=== PATIENT | female | born 1935 | race Caucasian/White ===

== ENCOUNTER 2019-01-01 17:43 | Emergency (ER) | payer MEDICARE, OTHER ==
[~2019-01-01] VITALS: Ht 167.6 cm; Wt 63.5 kg
[2019-01-01 17:49] VITALS: Ht 167.6 cm; Wt 63.5 kg
[2019-01-02 04:09] VITALS: BP 121/69
== END 2019-01-02 04:09 | disposition home or self-care (01) ==
LOC: ED 17:43
DX: S02.2XXA Fracture of nasal bones, initial encounter for closed fracture (principal); S01.111A Laceration without foreign body of right eyelid and periocular area, initial encounter; S09.8XXA Other specified injuries of head, initial encounter; I10 Essential (primary) hypertension; E03.9 Hypothyroidism, unspecified; F03.90 Unspecified dementia, unspecified severity, without behavioral disturbance, psychotic disturbance, mood disturbance, and anxiety; W18.39XA Other fall on same level, initial encounter; Y93.89 Activity, other specified; Y92.89 Other specified places as the place of occurrence of the external cause; Y99.8 Other external cause status
CPT/HCPCS: J1630; J2060

== ENCOUNTER 2019-05-18 15:53 | Inpatient (IN) | payer MEDICARE, OTHER ==
[~2019-05-18] VITALS: Ht 157.5 cm; Wt 51.7 kg
[~2019-05-18 15:53] MED LIST: ARICEPT10 MG PO; BACTRIM DS1 TAB PO; BENAZEPRIL HYDR40 M1 PO; CALCIUM + D SO1 EACH PO; COLACE100 MG PO; FERROUS SULFAT325 M2 PO; GABAPENTIN100 M2 PO; SYNTHROID0.15 MG PO
[2019-05-18 17:01] LABS: PLATELET COUNT 435 x10^3mcL (130-400); RED CELL DISTRIBUTION WIDTH 16.2 % (11.5-14.5)
[2019-05-18 17:22] LABS: CALCIUM 9.8 mg/dL (8.5-10.1); CARBON DIOXIDE 27.4 mmol/L (21-32); CHLORIDE SERUM 110 mmol/L (98-107); CREATININE SERUM 1.4 mg/dL (0.6-1.0); GLUCOSE SERUM 83 mg/dL (74-106); POTASSIUM SERUM 4.9 mmol/L (3.5-5.1); SODIUM SERUM 146 mmol/L (136-145)
[2019-05-18 17:39] LABS: ALKALINE PHOSPHATASE 156 U/L (46-116); ALT/SGPT 25 U/L (14-59); AST/SGOT 19 U/L (15-37); BILIRUBIN TOTAL 0.21 mg/dL (0.20-1.00); FREE T4 1.71 ng/dL (0.76-1.46); MAGNESIUM 2.2 mg/dL (1.8-2.4); TOTAL PROTEIN, SERUM 7.4 g/dL (6.4-8.2)
[2019-05-18 17:43] LABS: BAND NEUTROPHIL 0 % (0-10); BASOPHIL 0 % (0-2); MONOCYTE 3 % (0-7); PLATELET MORPHOLOGY PLATELETS NORMAL; SEGMENTED NEUTROPHILS 88 % (37-75); rbc morphology (normal/abnorm) NORMAL (NORMAL)
[2019-05-18 17:47] LABS: ALBUMIN 2.7 g/dL (3.4-5.0)
[2019-05-18 17:49] LABS: UA SPECIFIC GRAVITY >=1.030 (1.005-1.035); microscopic required? YES; urine erythrocyte TRACE (NEGATIVE)
[2019-05-18 20:32] LABS: CHOLESTEROL/HDL RATIO 2.6
[2019-05-18 21:13] LABS: AMPHETAMINE QUAL UR NONE DETECTED (See below)
[2019-05-18 22:07] VITALS: BP 85/56
[2019-05-19 06:36] VITALS: BP 114/57
[2019-05-19 06:43] LABS: CALCIUM 8.9 mg/dL (8.5-10.1); CARBON DIOXIDE 26.5 mmol/L (21-32); CHLORIDE SERUM 116 mmol/L (98-107); CREATININE SERUM 1.2 mg/dL (0.6-1.0); GLUCOSE SERUM 66 mg/dL (74-106); LIPASE 734 IU/L (73-393); MAGNESIUM 1.9 mg/dL (1.8-2.4); PHOSPHOROUS 3.2 mg/dL (2.5-4.9); POTASSIUM SERUM 5.1 mmol/L (3.5-5.1); SODIUM SERUM 151 mmol/L (136-145)
[2019-05-19 06:54] LABS: BASOPHIL % 0.3 % (0-2); PLATELET COUNT 340 x10^3mcL (130-400)
[2019-05-19 07:01] LABS: RED CELL DISTRIBUTION WIDTH 15.9 % (11.5-14.5)
[2019-05-19 08:34] VITALS: BP 119/95
[2019-05-19 12:49] VITALS: BP 91/51
[2019-05-19 16:11] LABS: CALCIUM 8.8 mg/dL (8.5-10.1); CARBON DIOXIDE 26.5 mmol/L (21-32); CHLORIDE SERUM 112 mmol/L (98-107); CREATININE SERUM 1.2 mg/dL (0.6-1.0); GLUCOSE SERUM 99 mg/dL (74-106); POTASSIUM SERUM 4.6 mmol/L (3.5-5.1); SODIUM SERUM 147 mmol/L (136-145)
[2019-05-19 17:59] VITALS: BP 111/53
[2019-05-19 21:21] VITALS: BP 98/43
[2019-05-20 05:59] VITALS: BP 106/61
[2019-05-20 07:04] LABS: BASOPHIL % 0.2 % (0-2); PLATELET COUNT 310 x10^3mcL (130-400)
[2019-05-20 07:07] LABS: RED CELL DISTRIBUTION WIDTH 16.1 % (11.5-14.5)
[2019-05-20 07:10] LABS: CALCIUM 8.7 mg/dL (8.5-10.1); CARBON DIOXIDE 26.2 mmol/L (21-32); CHLORIDE SERUM 111 mmol/L (98-107); GLUCOSE SERUM 91 mg/dL (74-106); POTASSIUM SERUM 3.9 mmol/L (3.5-5.1); SODIUM SERUM 144 mmol/L (136-145)
[2019-05-20 08:39] VITALS: BP 110/50
[2019-05-20 12:49] VITALS: BP 109/51
[2019-05-20 16:00] VITALS: BP 139/70
[2019-05-20 20:15] VITALS: BP 149/79
[2019-05-21 05:48] VITALS: BP 110/50
[2019-05-21 06:06] LABS: BASOPHIL % 0.2 % (0-2); PLATELET COUNT 293 x10^3mcL (130-400)
[2019-05-21 06:16] LABS: RED CELL DISTRIBUTION WIDTH 15.5 % (11.5-14.5)
[2019-05-21 06:58] LABS: CALCIUM 8.8 mg/dL (8.5-10.1); CARBON DIOXIDE 26.7 mmol/L (21-32); CHLORIDE SERUM 108 mmol/L (98-107); GLUCOSE SERUM 96 mg/dL (74-106); POTASSIUM SERUM 4.2 mmol/L (3.5-5.1); SODIUM SERUM 143 mmol/L (136-145)
[2019-05-21 08:18] VITALS: BP 88/59
[2019-05-21 12:42] VITALS: BP 130/83
[2019-05-21 17:09] VITALS: BP 124/80
[2019-05-21 20:16] VITALS: BP 120/74
[2019-05-22 05:35] VITALS: BP 119/67
[2019-05-22 06:41] LABS: CALCIUM 8.7 mg/dL (8.5-10.1); CARBON DIOXIDE 26.5 mmol/L (21-32); CHLORIDE SERUM 108 mmol/L (98-107); CREATININE SERUM 0.7 mg/dL (0.6-1.0); GLUCOSE SERUM 85 mg/dL (74-106); POTASSIUM SERUM 3.5 mmol/L (3.5-5.1); SODIUM SERUM 143 mmol/L (136-145)
[2019-05-22 07:06] LABS: BASOPHIL % 0.2 % (0-2); PLATELET COUNT 299 x10^3mcL (130-400)
[2019-05-22 07:28] LABS: RED CELL DISTRIBUTION WIDTH 15.7 % (11.5-14.5)
[2019-05-22 09:25] VITALS: BP 113/55
[2019-05-22 13:33] VITALS: BP 110/59
[2019-05-22 17:31] VITALS: BP 127/73
[2019-05-22 20:22] VITALS: BP 129/75
[2019-05-23 06:19] VITALS: BP 104/47
[2019-05-23 06:19] LABS: BASOPHIL % 0.2 % (0-2); PLATELET COUNT 315 x10^3mcL (130-400)
[2019-05-23 06:38] LABS: RED CELL DISTRIBUTION WIDTH 15.5 % (11.5-14.5)
[2019-05-23 06:50] LABS: CALCIUM 8.7 mg/dL (8.5-10.1); CARBON DIOXIDE 28.1 mmol/L (21-32); CHLORIDE SERUM 111 mmol/L (98-107); CREATININE SERUM 0.9 mg/dL (0.6-1.0); GLUCOSE SERUM 78 mg/dL (74-106); SODIUM SERUM 146 mmol/L (136-145)
[2019-05-23 09:04] VITALS: BP 92/55
[2019-05-23 11:22] VITALS: Ht 157.5 cm; Wt 51.7 kg
[2019-05-23 13:40] VITALS: BP 119/64
[2019-05-23 16:56] VITALS: BP 126/72
[2019-05-23 20:45] VITALS: BP 104/85
[2019-05-24 04:50] VITALS: BP 121/71
[2019-05-24 06:36] LABS: BASOPHIL % 0.4 % (0-2); PLATELET COUNT 307 x10^3mcL (130-400)
[2019-05-24 07:02] LABS: CALCIUM 8.4 mg/dL (8.5-10.1); CARBON DIOXIDE 27.2 mmol/L (21-32); CHLORIDE SERUM 112 mmol/L (98-107); GLUCOSE SERUM 92 mg/dL (74-106); POTASSIUM SERUM 3.3 mmol/L (3.5-5.1); SODIUM SERUM 148 mmol/L (136-145)
[2019-05-24 07:06] LABS: RED CELL DISTRIBUTION WIDTH 15.4 % (11.5-14.5)
[2019-05-24 08:19] VITALS: BP 113/44
[2019-05-24 16:14] VITALS: BP 122/60
[2019-05-24 16:36] VITALS: BP 122/60
[2019-05-24 17:44] VITALS: BP 130/74
[2019-05-24 20:07] VITALS: BP 110/76
[2019-05-25 05:31] VITALS: BP 126/99
[2019-05-25 06:51] LABS: PLATELET COUNT 323 x10^3mcL (130-400)
[2019-05-25 07:15] LABS: CALCIUM 8.6 mg/dL (8.5-10.1); CHLORIDE SERUM 112 mmol/L (98-107); CREATININE SERUM 0.8 mg/dL (0.6-1.0); GLUCOSE SERUM 160 mg/dL (74-106); POTASSIUM SERUM 3.3 mmol/L (3.5-5.1); SODIUM SERUM 148 mmol/L (136-145)
[2019-05-25 07:28] LABS: BASOPHIL % 0 % (0-2)
[2019-05-25 08:25] VITALS: BP 119/72
[2019-05-25 09:45] LABS: BASOPHIL % 0.5 % (0-2); PLATELET COUNT 333 x10^3mcL (130-400)
[2019-05-25 09:47] LABS: RED CELL DISTRIBUTION WIDTH 15.4 % (11.5-14.5)
[2019-05-25 12:02] VITALS: BP 107/51
[2019-05-25 16:53] VITALS: BP 127/40
[2019-05-25 20:37] VITALS: BP 160/52
[2019-05-26 05:22] VITALS: BP 118/53
[2019-05-26 06:49] LABS: BASOPHIL % 0.6 % (0-2); PLATELET COUNT 312 x10^3mcL (130-400)
[2019-05-26 07:41] LABS: RED CELL DISTRIBUTION WIDTH 15.5 % (11.5-14.5)
[2019-05-26 07:47] LABS: CALCIUM 8.4 mg/dL (8.5-10.1); CARBON DIOXIDE 28.3 mmol/L (21-32); CHLORIDE SERUM 112 mmol/L (98-107); CREATININE SERUM 0.8 mg/dL (0.6-1.0); GLUCOSE SERUM 109 mg/dL (74-106); POTASSIUM SERUM 3.3 mmol/L (3.5-5.1); SODIUM SERUM 149 mmol/L (136-145)
[2019-05-26 08:35] VITALS: BP 99/45
[2019-05-26] MEDS ORDERED: AUGMENTIN PO (10:23)
[2019-05-26 12:54] VITALS: BP 111/42
[2019-05-26 16:08] VITALS: BP 111/42
== END 2019-05-26 18:00 | DRG 393 ==
LOC: ED 15:53 → DU 19:56 → MU 19:56 → DU 21:51 → MU 05-25 10:08
PROVIDERS: Emergency Medicine; Internal Medicine Gastroenterology; Student in an Organized Health Care Education/Training Program; ADMIT Internal Medicine
PROC: 0DH68UZ Insertion of Feeding Device into Stomach, Via Natural or Artificial Opening Endoscopic (ICD-10-PCS; 2019-05-22)
PROC: 0DC68ZZ Extirpation of Matter from Stomach, Via Natural or Artificial Opening Endoscopic (ICD-10-PCS; principal; 2019-05-22 10:00)
PROC: 0DB68ZX Excision of Stomach, Via Natural or Artificial Opening Endoscopic, Diagnostic (ICD-10-PCS; 2019-05-22 10:00)
PROC: 0DC68ZZ Extirpation of Matter from Stomach, Via Natural or Artificial Opening Endoscopic (ICD-10-PCS; 2019-05-24)
DX: T18.2XXA Foreign body in stomach, initial encounter (principal); E43 Unspecified severe protein-calorie malnutrition; N17.0 Acute kidney failure with tubular necrosis; K25.3 Acute gastric ulcer without hemorrhage or perforation; N39.0 Urinary tract infection, site not specified; E87.0 Hyperosmolality and hypernatremia; R13.10 Dysphagia, unspecified; R62.7 Adult failure to thrive; E86.0 Dehydration; X58.XXXA Exposure to other specified factors, initial encounter; G30.9 Alzheimer's disease, unspecified; F02.80 Dementia in other diseases classified elsewhere, unspecified severity, without behavioral disturbance, psychotic disturbance, mood disturbance, and anxiety; K29.80 Duodenitis without bleeding; I10 Essential (primary) hypertension; D63.8 Anemia in other chronic diseases classified elsewhere; D47.3 Essential (hemorrhagic) thrombocythemia; E78.5 Hyperlipidemia, unspecified; E03.9 Hypothyroidism, unspecified; M19.90 Unspecified osteoarthritis, unspecified site; Z66 Do not resuscitate; Z22.322 Carrier or suspected carrier of Methicillin resistant Staphylococcus aureus; Z74.01 Bed confinement status; Z68.27 Body mass index [BMI] 27.0-27.9, adult; Y92.129 Unspecified place in nursing home as the place of occurrence of the external cause
CPT/HCPCS: 43235; 83880; 84439; 92526-GN; 92610-GN; 97116-GP; C1769; G0378; J0696; J1200; J1610; J2250; J2310; J3010; J3480; J3490; J7030; J7042; J7070; Q0092